=== PATIENT | male | born 1975 ===

== ENCOUNTER 2017-05-20 19:34 | Emergency (ER) | payer OTHER ==
[2017-05-20] MEDS ORDERED: BACITRACIN 500 U/GM OIN TOP ONE ×2 (19:58→20:10)
[2017-05-20] MEDS ORDERED: ACETAMINOPHEN 500 MG 500 MG TAB PO ONE (20:10)
[2017-05-20] MEDS ORDERED: IBUPROFEN 400 MG TAB PO ONE (20:10)
[2017-05-20] MEDS ORDERED: IBUPROFEN 400 MG TAB ONE (20:11)
[2017-05-20] MEDS ORDERED: ACETAMINOPHEN 500 MG 500 MG TAB ONE (20:11)
== END 2017-05-20 20:18 | disposition home or self-care (01) ==
LOC: ED 19:34
DX: T23.231A Burn of second degree of multiple right fingers (nail), not including thumb, initial encounter (principal); T31.0 Burns involving less than 10% of body surface; X10.2XXA Contact with fats and cooking oils, initial encounter
CPT/HCPCS: 99283